=== PATIENT | female | born 1985 | race Caucasian/White ===

== ENCOUNTER → 2016-09-11 | Outpatient (CLI) | payer BC | LOC: LAB 12:04 | PROVIDERS: ATTEND Obstetrics & Gynecology | DX: T83.84XA Pain due to genitourinary prosthetic devices, implants and grafts, initial encounter (principal); N83.12 Corpus luteum cyst of left ovary; Z32.02 Encounter for pregnancy test, result negative | CPT/HCPCS: 36415; 84702 ==